=== PATIENT | female | born 1990 | race Two or more races ===

== ENCOUNTER 2016-12-21 07:08 | Emergency (ER) | payer MEDICAID ==
[~2016-12-21] VITALS: Ht 160 cm; Wt 53.5 kg
[2016-12-21] MEDS ORDERED: FAMOTIDINE 20 MG/2 ML IVP ONE (08:00)
[2016-12-21] MEDS ORDERED: ONDANSETRON 2MG/ML, 2ML IVPush ONE (08:00)
[2016-12-21] MEDS ORDERED: SODIUM CHLORIDE 0.9% 1,000ML IVBOLUS ONE (08:00)
[2016-12-21] MEDS ORDERED: SODIUM CHLORIDE FLUSH 10ML SYR IVF ONE (08:00)
[2016-12-21] MEDS ORDERED: MORPHINE SULFATE 4 MG/ML, 1ML IVPush PRN (08:00)
[2016-12-21] MEDS ORDERED: ONDANSETRON 2MG/ML, 2ML ONE (08:08)
[2016-12-21] MEDS ORDERED: morphine SULFATE 10 MG/ML, 1ML ONE (08:08)
[2016-12-21] MEDS ORDERED: FAMOTIDINE 20 MG/2 ML ONE (08:08)
[2016-12-21 08:19] LABS: HEMATOCRIT 48.1 % (34.6-47.8); HEMOGLOBIN 16.4 g/dL (11.7-16.4); WHITE BLOOD COUNT 16.4 x10^3/uL (3.4-10)
[2016-12-21 08:36] LABS: ASPARTATE AMINO TRANSFERASE 22 U/L (15-37); BLOOD UREA NITROGEN 25 mg/dL (7-18)
[2016-12-21 11:06] VITALS: BP 97/55
== END 2016-12-21 11:08 | disposition home or self-care (01) ==
LOC: ED 08:44
DX: N30.00 Acute cystitis without hematuria (principal); R19.7 Diarrhea, unspecified; F17.200 Nicotine dependence, unspecified, uncomplicated
CPT/HCPCS: 36415; 80053; 81001; 83690; 84703; 85025; 87086; 87147; 96361; 96374; 96375; 99284; J2405; J7030; S0028